=== PATIENT | female | born 2000 | race Caucasian/White ===

== ENCOUNTER 2022-08-06 18:21 | Emergency (ER) | payer OTHER, SELFPAY ==
[2022-08-06] MEDS ORDERED: HYDROcodone/Acetaminophen 5/325 mg Tablet ONE (18:53)
== END 2022-08-06 19:36 | disposition home or self-care (01) ==
LOC: BURERS 18:21
DX: S42.252A Displaced fracture of greater tuberosity of left humerus, initial encounter for closed fracture (principal); S00.83XA Contusion of other part of head, initial encounter; S70.00XA Contusion of unspecified hip, initial encounter; S30.810A Abrasion of lower back and pelvis, initial encounter; Y04.0XXA Assault by unarmed brawl or fight, initial encounter; F17.290 Nicotine dependence, other tobacco product, uncomplicated
CPT/HCPCS: 71045